=== PATIENT | female | born 1995 | race Caucasian/White ===

== ENCOUNTER → 2017-07-10 | Outpatient (CLI) | END | disposition home or self-care (01) ==

== ENCOUNTER 2017-08-20 07:38 | Outpatient (CLI) | END 2017-08-20 11:40 | disposition home or self-care (01) ==

== ENCOUNTER 2017-08-24 14:20 | Inpatient (IN) | END 2017-08-27 16:24 | disposition home or self-care (01) | DRG 774 ==